=== PATIENT | female | born 1970 | race African-American/Black ===

== ENCOUNTER 2019-04-27 06:46 | Inpatient (IN) | payer MEDICAID, OTHER ==
[~2019-04-27] VITALS: Ht 163.8 cm; Wt 53.5 kg
[~2019-04-27 06:46] MED LIST: ALBU18HF INHALATION; ALBU8.5H8 INH; CIPR500T4 PO; DEC4 PO; LEVA15HF6 INH; LEVO750T25 PO; NAPR-985 PO
[2019-04-27] MEDS ORDERED: ALBUTEROL 0.5% (NEB) 2.5 MG/0.5 ML AMP INH STA ×3 (06:48→13:16)
[2019-04-27] MEDS ORDERED: MAGNESIUM SULFATE 2 GM/50 ML 50 ML IVPB STA (06:48)
[2019-04-27] MEDS ORDERED: DEXAMETHASONE 10 MG/ML 1 ML INJ IV STA (06:48)
[2019-04-27] MEDS ORDERED: IPRATROPIUM (NEB) 0.5 MG/2.5 ML AMP INH STA ×2 (06:48→09:40)
[2019-04-27] MEDS ORDERED: ONDANSETRON 4 MG INJ IV PRN ×2 (11:00→16:30)
[2019-04-27] MEDS ORDERED: ACETAMINOPHEN 325 MG TAB PO PRN ×2 (11:00→16:30)
[2019-04-27 13:45] VITALS: BP 121/71; PULSE 120; RESP 20
[2019-04-27] MEDS ORDERED: hydrALAzine 20 MG INJ IV PRN (16:30)
[2019-04-27] MEDS ORDERED: ALBUTEROL/IPRATROPIUM (NEB) 3 ML AMP HHN PRN (16:30)
[2019-04-27] MEDS ORDERED: LORAZEPAM 2 MG INJ IV PRN (16:30)
[2019-04-27] MEDS ORDERED: NITROGLYCERIN (SL) 0.4 MG TAB SL PRN (16:30)
[2019-04-27] MEDS: LEVOFLOXACIN 750MG/D5W (PMX) 150 ML IVPB SCH ×2 (16:30→19:35)
[2019-04-27] MEDS ORDERED: MAGNESIUM HYDROXIDE 30ML CUP PO PRN (16:30)
[2019-04-27] MEDS ORDERED: morphine 2 MG INJ IV PRN (16:30)
[2019-04-27] MEDS ORDERED: METHYLPREDNISOLONE 125 MG INJ IV SCH (16:30)
[2019-04-27] MEDS ORDERED: DOCUSATE SODIUM 100 MG CAP PO PRN (16:30)
[2019-04-27] MEDS ORDERED: NACL 0.9% 3 ML SYG IV SCH (16:30)
[2019-04-27] MEDS ORDERED: HYDROCODONE/APAP (5/325) TAB PO PRN (16:30)
[2019-04-27] MEDS: SOD CHLORIDE 0.45% 1,000 ML IV SCH (17:07)
[2019-04-27] MEDS ORDERED: METHYLPREDNISOLONE 40 MG INJ IV SCH (17:26)
[2019-04-27] MEDS: METHYLPREDNISOLONE 40 MG INJ IV SCH (18:00)
[2019-04-27 18:01] VITALS: Ht 163.8 cm; Wt 53.5 kg
[2019-04-27] MEDS: ALBUTEROL/IPRATROPIUM (NEB) 3 ML AMP HHN SCH ×2 (19:45→23:51)
[2019-04-27 19:52] VITALS: BP 118/86; PULSE 103; RESP 18
[2019-04-28 01:44] VITALS: BP 123/74; PULSE 98; RESP 19
[2019-04-28] MEDS: METHYLPREDNISOLONE 40 MG INJ IV SCH ×3 (02:03→17:18)
[2019-04-28] MEDS: ALBUTEROL/IPRATROPIUM (NEB) 3 ML AMP HHN SCH ×5 (04:30→21:06)
[2019-04-28] MEDS: SOD CHLORIDE 0.45% 1,000 ML IV SCH ×2 (05:33→09:40)
[2019-04-28 07:44] VITALS: BP 123/75; PULSE 81; RESP 18
[2019-04-28 14:16] VITALS: BP 105/68; PULSE 98; RESP 18
[2019-04-28 14:30] VITALS: BP 115/71; PULSE 94
[2019-04-28] MEDS: LEVOFLOXACIN 750MG/D5W (PMX) 150 ML IVPB SCH (15:48)
[2019-04-28 19:49] VITALS: BP 105/67; PULSE 89; RESP 19
[2019-04-29] MEDS: ALBUTEROL/IPRATROPIUM (NEB) 3 ML AMP HHN SCH ×4 (01:23→12:50)
[2019-04-29 01:50] VITALS: BP 98/51; PULSE 87; RESP 18
[2019-04-29] MEDS: SOD CHLORIDE 0.45% 1,000 ML IV SCH (06:03)
[2019-04-29 08:13] VITALS: BP 108/70; PULSE 65; RESP 18
[2019-04-29] MEDS ORDERED: predniSONE 20 MG TAB PO SCH (09:00)
[2019-04-29 15:34] VITALS: BP 117/63; PULSE 75; RESP 18
[2019-04-29] MEDS: LEVOFLOXACIN 750MG/D5W (PMX) 150 ML IVPB SCH (16:30)
== END 2019-04-29 18:30 | disposition home or self-care (01) | DRG 203 ==
LOC: E/R 06:46 → MS1 10:51 → INTOOBSV 04-28 07:35 → OBSVTOIN 04-28 07:35
PROVIDERS: ADMIT Internal Medicine; ATTEND Hospitalist
DX: J45.901 Unspecified asthma with (acute) exacerbation (principal)
CPT/HCPCS: 71045; 80048; 80061; 81025; 83036; 83735; 84100; 84439; 84443; 85025; 94640; 94644; 94645; 94664; 96365; 96366; 96375; G0378; J1100; J1956; J2405; J2920; J3475; J7512